=== PATIENT | male | born 1960 | race Caucasian/White ===

== ENCOUNTER → 2016-11-13 | Outpatient (CLI) | payer OTHER ==
[~2016-11-13] MED LIST: /WARF5TA PO; AUGM875T27 PO; FLEC50TA PO; LANO0.252 OR; SALI0.653; SPIR25TA2 PO; SPIRPOW OR; TYLE325T5 PO; XANA0.5T PO; Z-PACK PO
--- NOTE | 2016-11-13 12:48 | REP ---
MAXILLOFACIAL CT WITHOUT CONTRAST: HISTORY: Chronic sinusitis. COMPARISON: 03/30/2012. The sinuses are clear. The osteomeatal units are patent. The middle and inferior nasal turbinates are partially paradoxical. There is minimal deviation of the nasal septum to the left. The cribriform plate, medial carroll of the orbits and optic canals are intact. There is aeration of the anterior clinoid processes. The carotid canals form a segment of the posterolateral carroll of the sphenoid sinus. The right sphenoid sinus septum inserts into the right internal carotid canal wall. IMPRESSION: There is no acute or chronic sinusitis. Signed by Efrain Caceres MD 11/13/2016 12:50 P
== END ==
LOC: M RAD 10:08
PROVIDERS: ATTEND Otolaryngology
DX: J32.4 Chronic pansinusitis (principal)

== ENCOUNTER → 2017-01-08 | Outpatient (CLI) | payer OTHER ==
--- NOTE | 2017-01-08 11:36 | REP ---
MAXILLOFACIAL CT WITHOUT CONTRAST: HISTORY: Chronic pansinusitis. COMPARISON: 11/13/2016. The sinuses are clear. The ostiomeatal units are patent. The middle and inferior nasal turbinates are partially paradoxical. There is minimal deviation of the nasal septum to the left. The cribriform plate, medial carroll of the orbits and optic canals are intact. There is aeration of the anterior clinoid processes. The carotid canals form a segment of the posterolateral carroll of the sphenoid sinus. The right sphenoid sinus septum inserts into the right internal carotid canal wall. IMPRESSION: There is no acute or chronic sinusitis. Signed by Efrain Caceres MD 01/08/2017 11:46 A
== END ==
LOC: M RAD 10:15
PROVIDERS: ATTEND Otolaryngology
DX: J32.9 Chronic sinusitis, unspecified (principal)

== ENCOUNTER → 2017-03-12 | Outpatient (CLI) | payer OTHER ==
[2017-03-12 09:16] LABS: MEAN CORPUSCULAR HEMOGLOBIN 30.7 pg (27.0-33.0); MEAN CORPUSCULAR HGB CONC 34.9 g/dl (32.0-36.5); MEAN CORPUSCULAR VOLUME 87.9 fl (80.0-96.0); PLATELET COUNT, AUTOMATED 242 10^3/uL (150-450); RED CELL DISTRIBUTION WIDTH 13.2 % (11.5-14.5); WHITE BLOOD COUNT 6.4 10^3/uL (4.0-10.0)
[2017-03-12 09:34] LABS: ALBUMIN 4.1 GM/DL (3.2-5.2); ALBUMIN/GLOBULIN RATIO 1.32 (1.00-1.93); ALKALINE PHOSPHATASE 80 U/L (45-117); ALT/SGPT 60 U/L (12-78); ANION GAP 6 MEQ/L (8-16); AST/SGOT 41 U/L (7-37); BILIRUBIN,TOTAL 0.8 MG/DL (0.2-1.0); BLOOD UREA NITROGEN 11 MG/DL (7-18); CALCIUM LEVEL 9.2 MG/DL (8.5-10.1); CARBON DIOXIDE LEVEL 31 MEQ/L (21-32); CHLORIDE LEVEL 105 MEQ/L (98-107); CHOLESTEROL LEVEL 171 MG/DL (<200); CREATININE FOR GFR 1.02 MG/DL (0.70-1.30); GLOMERULAR FILTRATION RATE > 60.0 (>56); GLUCOSE, FASTING 109 MG/DL (70-105); SODIUM LEVEL 142 MEQ/L (136-145); TOTAL PROTEIN 7.2 GM/DL (6.4-8.2); TRIGLYCERIDES LEVEL 191 MG/DL (<150)
== END ==
LOC: M LAB 08:35
PROVIDERS: ATTEND Physician Assistant
DX: Z01.810 Encounter for preprocedural cardiovascular examination (principal); E78.00 Pure hypercholesterolemia, unspecified; I48.0 Paroxysmal atrial fibrillation

== ENCOUNTER 2017-04-30 05:49 | Emergency (ER) | payer OTHER ==
[2017-04-30 06:30] LABS: BASO % 0.4 % (0.0-1.0); EOS # 0.1 10^3/uL (0.0-0.50); EOS % 1.2 % (0.0-3.0); HEMATOCRIT 44.3 % (42.0-52.0); IMMATURE GRANULOCYTE % 0.2 % (0-0); LYMPH # 1.6 10^3/uL (1.5-4.5); LYMPH % 19.7 % (24.0-44.0); MEAN CORPUSCULAR HEMOGLOBIN 30.9 pg (27.0-33.0); MEAN CORPUSCULAR HGB CONC 36.1 g/dl (32.0-36.5); MEAN CORPUSCULAR VOLUME 85.5 fl (80.0-96.0); MONO # 0.6 10^3/uL (0.0-0.8); NEUTROPHILS # 5.7 10^3/uL (1.8-7.7); NEUTROPHILS % 70.5 % (36.0-66.0); PLATELET COUNT, AUTOMATED 240 10^3/uL (150-450); RED BLOOD COUNT 5.18 10^6/uL (4.30-6.10); RED CELL DISTRIBUTION WIDTH 13.1 % (11.5-14.5)
[2017-04-30 07:01] LABS: ANION GAP 8 MEQ/L (8-16); BLOOD UREA NITROGEN 12 MG/DL (7-18); CALCIUM LEVEL 8.8 MG/DL (8.5-10.1); CARBON DIOXIDE LEVEL 28 MEQ/L (21-32); CHLORIDE LEVEL 106 MEQ/L (98-107); CPK CREATINE PHOSPHOKINASE 325 U/L (39-308); CREATININE FOR GFR 1.03 MG/DL (0.70-1.30); GLOMERULAR FILTRATION RATE > 60.0 (>56); GLUCOSE, FASTING 133 MG/DL (70-105); MAGNESIUM LEVEL 2.1 MG/DL (1.8-2.4); POTASSIUM SERUM 3.4 MEQ/L (3.5-5.1); SODIUM LEVEL 142 MEQ/L (136-145); TROPONIN I < 0.02 NG/ML (< 0.10)
[2017-04-30 07:06] LABS: CK-MB VALUE MASS 5.8 NG/ML (0.0-3.6); MB/CK RELATIVE INDEX 1.78 (< OR =4)
[2017-04-30 07:10] LABS: DIGOXIN LEVEL 0.5 NG/ML (0.5-2.0)
== END 2017-04-30 07:48 | disposition home or self-care (01) ==
LOC: M ED 05:49
DX: R00.2 Palpitations (principal); I48.0 Paroxysmal atrial fibrillation; Z79.01 Long term (current) use of anticoagulants; Z95.0 Presence of cardiac pacemaker; E78.00 Pure hypercholesterolemia, unspecified; J45.909 Unspecified asthma, uncomplicated; K44.9 Diaphragmatic hernia without obstruction or gangrene
CPT/HCPCS: 93005

== ENCOUNTER → 2018-05-12 | Outpatient (CLI) | payer OTHER ==
[~2018-05-12] MED LIST changes: +ATOR1TAB19 PO; +MONT10TA2 PO; +XARE20TA PO
--- NOTE | 2018-05-12 11:32 | REP ---
Clinical: Right groin pain status post cardiac catheterization. Technique: Real time valencia scale and color Doppler evaluation using linear high frequency transducer. Findings: Directed ultrasound examination of the right groin at the site of prior catheterization demonstrates subcutaneous edema as well as a 2.6 x 1.1 x 3.1 cm hematoma anterior to normal appearing common femoral artery/superficial femoral artery and common femoral vein. There is no evidence for pseudoaneurysm, aneurysm or arteriovenous fistula. Impression: Subcutaneous edema and small hematoma. Electronically Signed by Bobby Mohan MD 05/12/2018 11:24 A
== END ==
LOC: M RAD 10:46
PROVIDERS: ATTEND Physician Assistant
DX: M79.81 Nontraumatic hematoma of soft tissue (principal)

== ENCOUNTER → 2018-06-20 | Outpatient (REF) | payer OTHER | LOC: M LAB REF 11:22 | PROVIDERS: ATTEND Physician Assistant | DX: R19.7 Diarrhea, unspecified (principal) ==

== ENCOUNTER 2018-06-30 03:34 | Emergency (ER) | payer OTHER ==
[~2018-06-30] VITALS: Ht 188 cm; Wt 100.9 kg
[2018-06-30] MEDS ORDERED: DILT180C74 PO (03:41)
[2018-06-30] MEDS ORDERED: POTA20TA6 PO (03:41)
[2018-06-30 04:28] LABS: BASO % 0.2 % (0.0-1.0); EOS # 0.1 10^3/uL (0.0-0.50); EOS % 0.5 % (0.0-3.0); HEMATOCRIT 46.4 % (42.0-52.0); HEMOGLOBIN 16.3 g/dl (13.5-17.5); LYMPH # 1.1 10^3/uL (1.5-4.5); LYMPH % 8.1 % (24.0-44.0); MEAN CORPUSCULAR HGB CONC 35.1 g/dl (32.0-36.5); MEAN CORPUSCULAR VOLUME 88.2 fl (80.0-96.0); MONO # 0.7 10^3/uL (0.0-0.8); MONO % 5.3 % (0.0-5.0); NEUTROPHILS # 11.2 10^3/uL (1.8-7.7); NEUTROPHILS % 85.4 % (36.0-66.0); PLATELET COUNT, AUTOMATED 245 10^3/uL (150-450); RED BLOOD COUNT 5.26 10^6/uL (4.30-6.10); WHITE BLOOD COUNT 13.1 10^3/uL (4.0-10.0)
[2018-06-30 04:55] LABS: ALBUMIN 4.6 GM/DL (3.2-5.2); ALT/SGPT 34 U/L (12-78); BILIRUBIN,DIRECT 0.1 MG/DL (0.0-0.2); BILIRUBIN,TOTAL 0.5 MG/DL (0.2-1.0); BLOOD UREA NITROGEN 10 MG/DL (7-18); CALCIUM LEVEL 9.1 MG/DL (8.5-10.1); CARBON DIOXIDE LEVEL 27 MEQ/L (21-32); CHLORIDE LEVEL 109 MEQ/L (98-107); CREATININE FOR GFR 0.99 MG/DL (0.70-1.30); GLOMERULAR FILTRATION RATE > 60.0 (>56); GLUCOSE, FASTING 123 MG/DL (70-100); LIPASE 151 U/L (73-393); POTASSIUM SERUM 3.8 MEQ/L (3.5-5.1); SODIUM LEVEL 143 MEQ/L (136-145); TOTAL PROTEIN 7.6 GM/DL (6.4-8.2)
[2018-06-30] MEDS ORDERED: ISOVUE-370 76% 125ML VIAL (Q9967 PER ML) As Ordered ONE (05:37)
[2018-06-30] MEDS ORDERED: metroNIDAZOLE (FLAGYL) 500 MG TAB PO ONE (07:30)
--- NOTE | 2018-06-30 07:54 | REPVR ---
EXAM: CT Abdomen and Pelvis With Contrast EXAM DATE/TIME: 06/30/2018 5:21 AM CLINICAL HISTORY: 57 years old, male; Abdominal pain; diarrhea TECHNIQUE: Axial computed tomography images of the abdomen and pelvis with intravenous contrast. All CT scans at this facility use at least one of these dose optimization techniques: automated exposure control; mA and/or kV adjustment per patient size (includes targeted exams where dose is matched to clinical indication); or iterative reconstruction. Coronal and sagittal reformatted images were created and reviewed. CONTRAST: Contrast Material: 100 ml of iso; Contrast Route: ac COMPARISON: CT ABD PELVIS W/O CONTRAST 08/17/2013 9:49 AM The report from this study was not available for review at the time of this interpretation. FINDINGS: Tubes, catheters and devices: Pacemaker wires were partially imaged in the heart. Lower thorax: There is mild dependent atelectasis in both lower lobes. No cardiomegaly is noted. There is a small water density pericardial effusion. ABDOMEN: Liver: There are multiple water density lesions in the liver, which are compatible with cysts, the largest measuring 3.2 cm and the anterior superior segment 8 of the right hepatic lobe, and some of the cysts on fluctuated in size compared to the prior CT scan on 08/17/2013. The liver is otherwise unremarkable. No hepatomegaly is noted. The contour of the liver is smooth. Gallbladder and bile ducts: There has been a cholecystectomy. There is no fluid collection in the gallbladder fossa. No dilation of the bile ducts is noted. Pancreas: Normal. No ductal dilation. Spleen: The spleen is mildly enlarged and measures 13.1 cm and previously measured 12.4 cm in the prior CT scan on 08/17/2013. No splenic lesion is noted. Adrenals: Normal. No mass. Kidneys and ureters: There is a 7 mm simple cyst in the anterior cortex of the midpole of the left kidney. There are several other smaller low attenuation lesions in both kidneys, which are too small to accurately characterize, but statistically may represent cysts. These lesions are occult in the prior unenhanced CT scan on 08/17/2013. No stones are noted in the kidneys or ureters. There is no hydronephrosis or hydroureter. There are no wedge-shaped areas of low attenuation in the kidneys to suggest pyelonephritis. There is no renal abscess or perinephric fluid collection. Stomach and bowel: There are multiple dilated loops of jejunum and ileum with air-fluid levels measuring up to 4 cm in diameter, with a gradual transition from dilated to nondilated ileum in the left side of the abdomen. No dilation of the colon is noted. There is no evidence for perforated viscus, pneumatosis intestinalis, volvulus, or intussusception. There is liquid feces in the colon, which will lead to diarrhea. Appendix: Normal. There is no evidence for appendicitis. PELVIS: Bladder: The urinary bladder is decompressed, limiting its optimal evaluation. No stones are seen in the bladder. Reproductive: The prostate gland is enlarged and measures 5.4 cm x 4 cm x 4.4 cm and the volume of the prostate gland is increased and measures 50.1 mL. The seminal vesicles are unremarkable. Vasectomy clips are noted. ABDOMEN and PELVIS: Intraperitoneal space: Normal. No free air. No fluid collection. Bones/joints: The imaged bony structures are intact. There is no suspicious osteolytic or osteoblastic lesion. Soft tissues: Unremarkable. No hernia. Vasculature: The abdominal aorta is normal in caliber and patent. The iliac arteries, common femoral arteries, renal arteries, celiac artery, superior mesenteric artery, and inferior mesenteric artery are patent. The renal veins, portal veins, splenic vein, superior mesenteric vein, and inferior mesenteric vein are patent. Lymph nodes: Normal. No enlarged lymph nodes. IMPRESSION: 1. Multiple dilated loops of jejunum and ileum with air-fluid levels measuring up to 4 cm in diameter, with a gradual transition from dilated to nondilated ileum in the left side of the abdomen, which are findings that may represent a small bowel obstruction rather than an ileus. 2. Enlarged prostate gland. 3. Mild splenomegaly. COMMENT: Consistent with the [employer] Incidental Findings Committee Report ([address] [place] [address] Radiol 2010): Unless the patients specific circumstances suggest otherwise, any liver lesion 0.5 cm or less, any cystic kidney lesion less than 1.0 cm, and/or any adrenal lesion 1.0 cm or less not otherwise characterized in this report as possessing suspicious or indeterminate imaging features is/are highly likely to be benign and do not require follow-up imaging or biopsy. Electronically signed by: Femi Haro On 06/30/2018 07:53:41 AM
[2018-06-30] MEDS ORDERED: FLAG500T PO (08:14)
[2018-06-30 08:15] VITALS: BP 116/79
--- NOTE | 2018-06-30 09:52 | ED PDOC ---
Post-Departure Follow-Up ft nuvia gan and dr paul faxed formal report of ct abd/p for fu Anuradha Nguyen MD Jun 30, 2018 09:52
== END 2018-06-30 08:29 | disposition home or self-care (01) ==
LOC: M ED 03:34
DX: A04.72 Enterocolitis due to Clostridium difficile, not specified as recurrent (principal); I48.91 Unspecified atrial fibrillation; Z95.0 Presence of cardiac pacemaker; Z86.718 Personal history of other venous thrombosis and embolism; Z86.711 Personal history of pulmonary embolism; Z88.8 Allergy status to other drugs, medicaments and biological substances; Z88.1 Allergy status to other antibiotic agents; Z88.5 Allergy status to narcotic agent; Z91.048 Other nonmedicinal substance allergy status; Z79.899 Other long term (current) drug therapy; Z79.01 Long term (current) use of anticoagulants
CPT/HCPCS: 74177; 80048; 80076; 83690; 85025; 87507; 93041; 99284; Q9967

== ENCOUNTER 2018-07-12 18:03 | Emergency (ER) | payer OTHER ==
[~2018-07-12] VITALS: Ht 188 cm; Wt 100.9 kg
[~2018-07-12 18:03] MED LIST changes: -/WARF5TA PO; +COUM1TAB17 PO; +DILT1CAP3 PO; +FLAG500T PO; +FLEC50HA PO; -FLEC50TA PO; +POTA20TA6 PO
[2018-07-12] MEDS ORDERED: VANC1CAP6 PO (19:05)
[2018-07-12] MEDS ORDERED: VANCOMYCIN ORAL SOL 250MG/5ML ORAL SYRINGE PO ONE ×2 (19:15)
[2018-07-12 19:29] VITALS: BP 128/80
== END 2018-07-12 19:45 | disposition home or self-care (01) ==
LOC: M ED 18:03
DX: A04.72 Enterocolitis due to Clostridium difficile, not specified as recurrent (principal); I48.91 Unspecified atrial fibrillation; Z86.711 Personal history of pulmonary embolism; Z86.718 Personal history of other venous thrombosis and embolism; Z95.0 Presence of cardiac pacemaker; Z79.899 Other long term (current) drug therapy; Z88.8 Allergy status to other drugs, medicaments and biological substances; Z88.5 Allergy status to narcotic agent; Z91.018 Allergy to other foods

== ENCOUNTER 2018-07-28 14:40 | Emergency (ER) | payer OTHER ==
[~2018-07-28] VITALS: Ht 188 cm; Wt 100.9 kg
[~2018-07-28 14:40] MED LIST changes: +VANC1CAP6 PO
[2018-07-28] MEDS ORDERED: VANC125C3 PO (15:30)
[2018-07-28] MEDS ORDERED: VANCOMYCIN ORAL SOL 250MG/5ML ORAL SYRINGE PO SCH (15:45)
[2018-07-28 16:06] VITALS: BP 126/74
[2018-08-03] MEDS ORDERED: APAP325T4 PO (12:53)
== END 2018-07-28 16:10 | disposition home or self-care (01) ==
LOC: M ED 14:40
DX: A04.72 Enterocolitis due to Clostridium difficile, not specified as recurrent (principal); J45.909 Unspecified asthma, uncomplicated; I48.91 Unspecified atrial fibrillation; Z86.711 Personal history of pulmonary embolism; K21.9 Gastro-esophageal reflux disease without esophagitis; K58.9 Irritable bowel syndrome, unspecified; F41.9 Anxiety disorder, unspecified; F32.9 Major depressive disorder, single episode, unspecified; Z79.899 Other long term (current) drug therapy; Z79.01 Long term (current) use of anticoagulants; Z95.0 Presence of cardiac pacemaker; Z88.1 Allergy status to other antibiotic agents; Z88.5 Allergy status to narcotic agent; Z88.8 Allergy status to other drugs, medicaments and biological substances; Z91.048 Other nonmedicinal substance allergy status

== ENCOUNTER 2018-08-04 13:16 | Day surgery (SDC) | payer OTHER ==
[~2018-08-04] VITALS: Ht 188 cm; Wt 98.9 kg
[~2018-08-04 13:16] MED LIST changes: +APAP325T4 PO; +FECAL MICROBIOTA PREPARATION 250 ML BTL (J3590) XX ONE; +NS 1,000 ML IV ONE; +VANC125C3 PO
[2018-08-04] MEDS ORDERED: PROPOFOL 200 MG/20 ML VIAL As Ordered ONE (17:09)
[2018-08-04] MEDS ORDERED: LIDOCAINE 2% INJ 100 MG/5 ML SDV (FOR ANES.) As Ordered ONE (17:09)
--- NOTE | 2018-08-04 17:12 | ROOR ---
Patient Name: Haider David Procedure Date: 08/04/2018 4:45 PM Date of : 1960 Age: 57 Room: [facility] Gender: Male Note Status: Finalized Procedure: Colonoscopy Indications: Fecal transplant for treatment of recurrent Clostridium difficile diarrhea Providers: Justyn MARTINEZ MD Referring MD: NAGI LAZAR MD Requesting Provider: Medicines: Monitored Anesthesia Care Complications: No immediate complications. Procedure: Pre-Anesthesia Assessment: - The heart rate, respiratory rate, oxygen saturations, blood pressure, adequacy of pulmonary ventilation, and response to care were monitored throughout the procedure. The Colonoscope was introduced through the anus and advanced to 10 cm into the ileum. The colonoscopy was performed without difficulty. The patient tolerated the procedure well. The quality of the bowel preparation was good. Findings: The perianal and digital rectal examinations were normal. Fecal Microbiota Transplant (Bacteriotherapy): Donor stool was prepared as per protocol. Approximately 250 mL of the emulsified donor stool was instilled in the cecum. A detailed colonoscopic exam could not be performed upon scope withdrawal secondary to limited visibility from the instilled stool. The colon (entire examined portion) was moderately redundant. Impression: - Redundant colon. - Fecal Microbiota Transplant (Bacteriotherapy) performed in the cecum. - No specimens collected. Recommendation: - Return to my office in 1 month. Justyn Martinez MD Justyn MARTINEZ MD 08/04/2018 5:11:53 PM Electronically signed by Justyn MARTINEZ MD Number of Addenda: 0 Note Initiated On: 08/04/2018 4:45 PM Estimated Blood Loss: Estimated blood loss: none.
[2018-08-04 17:50] VITALS: BP 128/68
== END 2018-08-04 18:05 | disposition home or self-care (01) ==
LOC: M OPP 13:16
PROVIDERS: ATTEND Internal Medicine Gastroenterology
DX: A04.71 Enterocolitis due to Clostridium difficile, recurrent (principal); Q43.8 Other specified congenital malformations of intestine

== ENCOUNTER → 2018-08-14 | Outpatient (CLI) | payer OTHER ==
[~2018-08-14] MED LIST changes: +E-Z-PAQUE 96% w/w SUSP 176GM BTL As Ordered ONE; -FECAL MICROBIOTA PREPARATION 250 ML BTL (J3590) XX ONE; -NS 1,000 ML IV ONE
--- NOTE | 2018-08-15 15:02 | REP ---
Small bowel follow-through The procedure was performed under the direct supervision of Dr. Martini. The images were reviewed with Dr. Martini. The tests superintendent film shows no organomegaly or pathological masses. The intestinal gas pattern is nonspecific. Liquid barium was administered and the barium column was followed through the small bowel to the level of the terminal ileum. Small bowel transit time is approximately 240 minutes . During fluoroscopy gentle palpation shows all loops are freely movable and pliable. There are no fixed or angulated loops. The small bowel mucosal pattern is normal in course and caliber. There is no transition to suggest a partial small bowel obstruction. Spot filming of the terminal ileum shows it to be unremarkable. Impression: Small bowel follow-through examination within normal limits. 0.9 minutes of fluoro time was utilized for this procedure. Reviewed by LUCA Arana 08/14/2018 04:44 P Electronically Signed by Ranjan Martini MD 08/15/2018 02:51 P
== END ==
LOC: M RAD 08:18
PROVIDERS: ATTEND Internal Medicine Gastroenterology
DX: A04.71 Enterocolitis due to Clostridium difficile, recurrent (principal)

== ENCOUNTER → 2018-08-18 | Outpatient (REF) | payer OTHER ==
[~2018-08-18] MED LIST changes: -E-Z-PAQUE 96% w/w SUSP 176GM BTL As Ordered ONE
[2018-08-18 15:17] LABS: CLOSTRIDIUM DIFFICILE PCR NEGATIVE (NEGATIVE)
== END ==
LOC: M LAB REF 11:49
PROVIDERS: ATTEND Internal Medicine Gastroenterology
DX: A04.71 Enterocolitis due to Clostridium difficile, recurrent (principal)

== ENCOUNTER → 2018-09-05 | Outpatient (REF) | payer OTHER | LOC: M LAB REF 07:20 | PROVIDERS: ATTEND Internal Medicine Gastroenterology | DX: A04.72 Enterocolitis due to Clostridium difficile, not specified as recurrent (principal) ==

== ENCOUNTER → 2018-09-09 | Outpatient (REF) | payer OTHER ==
[2018-09-09 13:02] LABS: CLOSTRIDIUM DIFFICILE PCR NEGATIVE (NEGATIVE)
== END ==
LOC: M LAB REF 09:13
PROVIDERS: ATTEND Internal Medicine Gastroenterology
DX: R19.7 Diarrhea, unspecified (principal)

== ENCOUNTER → 2018-10-27 | Outpatient (CLI) | payer OTHER ==
[2018-10-27 11:09] LABS: HEMOGLOBIN 15.5 g/dl (13.5-17.5); MEAN CORPUSCULAR HEMOGLOBIN 31.4 pg (27.0-33.0); MEAN CORPUSCULAR HGB CONC 35.2 g/dl (32.0-36.5); MEAN CORPUSCULAR VOLUME 89.1 fl (80.0-96.0); PLATELET COUNT, AUTOMATED 204 10^3/uL (150-450); RED BLOOD COUNT 4.94 10^6/uL (4.30-6.10)
[2018-10-27 11:49] LABS: ALBUMIN 4.3 GM/DL (3.2-5.2); ALT/SGPT 33 U/L (12-78); BILIRUBIN,TOTAL 0.5 MG/DL (0.2-1.0); BLOOD UREA NITROGEN 7 MG/DL (7-18); CALCIUM LEVEL 9.6 MG/DL (8.5-10.1); CARBON DIOXIDE LEVEL 31 MEQ/L (21-32); CHLORIDE LEVEL 106 MEQ/L (98-107); CHOLESTEROL LEVEL 163 MG/DL (<200); CHOLESTEROL RISK RATIO 3.975 (<5); GLOMERULAR FILTRATION RATE > 60.0 (>56); GLUCOSE, FASTING 96 MG/DL (70-100); HDL CHOLESTEROL 41 MG/DL (>40); LDL CHOLESTEROL 95 MG/DL (<100); MAGNESIUM LEVEL 2.2 MG/DL (1.8-2.4); NON-HDL-C 122 MG/DL; POTASSIUM SERUM 4.1 MEQ/L (3.5-5.1); SODIUM LEVEL 142 MEQ/L (136-145); TRIGLYCERIDES LEVEL 135 MG/DL (<150)
== END ==
LOC: M LAB 09:50
PROVIDERS: ATTEND Physician Assistant
DX: I48.0 Paroxysmal atrial fibrillation (principal); E78.00 Pure hypercholesterolemia, unspecified

== ENCOUNTER 2018-11-24 18:02 | Emergency (ER) | payer OTHER ==
[~2018-11-24] VITALS: Ht 188 cm; Wt 94.9 kg
[2018-11-24] MEDS ORDERED: LOPE1CAP5 (19:13)
[2018-11-24] MEDS ORDERED: MIRA3350 (19:13)
[2018-11-24] MEDS ORDERED: ROSU10TA6 (19:13)
[2018-11-24] MEDS ORDERED: PANTOPRAZOLE 40MG INJ (PROTONIX) (C9113) IV ONE (19:15)
[2018-11-24] MEDS ORDERED: NS 1,000 ML IV ONE (19:15)
[2018-11-24 19:50] LABS: BASO % 0.3 % (0.0-1.0); EOS # 0.1 10^3/uL (0.0-0.50); EOS % 1.7 % (0.0-3.0); HEMATOCRIT 41.8 % (42.0-52.0); HEMOGLOBIN 14.8 g/dl (13.5-17.5); LYMPH # 1.3 10^3/uL (1.5-4.5); MEAN CORPUSCULAR HEMOGLOBIN 31.5 pg (27.0-33.0); MEAN CORPUSCULAR HGB CONC 35.4 g/dl (32.0-36.5); MEAN CORPUSCULAR VOLUME 88.9 fl (80.0-96.0); MONO # 0.5 10^3/uL (0.0-0.8); MONO % 8.7 % (0.0-5.0); NEUTROPHILS # 3.8 10^3/uL (1.8-7.7); PLATELET COUNT, AUTOMATED 197 10^3/uL (150-450); WHITE BLOOD COUNT 5.8 10^3/uL (4.0-10.0)
[2018-11-24 20:00] VITALS: BP 134/75
[2018-11-24 20:05] LABS: ALBUMIN 4.3 GM/DL (3.2-5.2); ALT/SGPT 28 U/L (12-78); BILIRUBIN,DIRECT 0.1 MG/DL (0.0-0.2); BILIRUBIN,TOTAL 0.5 MG/DL (0.2-1.0); BLOOD UREA NITROGEN 11 MG/DL (7-18); CALCIUM LEVEL 8.9 MG/DL (8.5-10.1); CARBON DIOXIDE LEVEL 28 MEQ/L (21-32); CHLORIDE LEVEL 108 MEQ/L (98-107); CREATININE FOR GFR 0.93 MG/DL (0.70-1.30); GLOMERULAR FILTRATION RATE > 60.0 (>56); GLUCOSE, FASTING 99 MG/DL (70-100); LIPASE 91 U/L (73-393); POTASSIUM SERUM 3.6 MEQ/L (3.5-5.1); SODIUM LEVEL 143 MEQ/L (136-145); TOTAL PROTEIN 6.9 GM/DL (6.4-8.2)
== END 2018-11-24 21:09 | disposition home or self-care (01) ==
LOC: M ED 18:02
DX: R19.7 Diarrhea, unspecified (principal); I48.91 Unspecified atrial fibrillation; Z79.899 Other long term (current) drug therapy; Z79.01 Long term (current) use of anticoagulants
CPT/HCPCS: 80048; 80076; 83690; 85025; 87507; 96374; 99284; C9113

== ENCOUNTER 2018-11-28 04:27 | Emergency (ER) | payer OTHER ==
[~2018-11-28] VITALS: Ht 188 cm; Wt 95.5 kg
[~2018-11-28 04:27] MED LIST changes: +LOPE1CAP5; +MIRA3350; +ROSU10TA6
[2018-11-28] MEDS ORDERED: NS 1,000 ML IV ONE (05:30)
[2018-11-28 05:51] LABS: BASO % 0.1 % (0.0-1.0); EOS % 0.1 % (0.0-3.0); HEMATOCRIT 44.7 % (42.0-52.0); HEMOGLOBIN 15.7 g/dl (13.5-17.5); LYMPH # 0.8 10^3/uL (1.5-4.5); MEAN CORPUSCULAR HEMOGLOBIN 31.2 pg (27.0-33.0); MEAN CORPUSCULAR HGB CONC 35.1 g/dl (32.0-36.5); MEAN CORPUSCULAR VOLUME 88.9 fl (80.0-96.0); MONO # 0.8 10^3/uL (0.0-0.8); MONO % 5.4 % (0.0-5.0); NEUTROPHILS # 13.9 10^3/uL (1.8-7.7); PLATELET COUNT, AUTOMATED 197 10^3/uL (150-450); RED BLOOD COUNT 5.03 10^6/uL (4.30-6.10); WHITE BLOOD COUNT 15.6 10^3/uL (4.0-10.0)
[2018-11-28] MEDS ORDERED: MAALOX 30 ML SUSP *UDC PO ONE (06:00)
[2018-11-28] MEDS ORDERED: ONDANSETRON 4MG/2ML VIAL (J2405) IV ONE (06:00)
[2018-11-28 06:29] LABS: ALBUMIN 4.6 GM/DL (3.2-5.2); BILIRUBIN,DIRECT 0.1 MG/DL (0.0-0.2); BILIRUBIN,TOTAL 0.5 MG/DL (0.2-1.0); TOTAL PROTEIN 7.4 GM/DL (6.4-8.2)
[2018-11-28] MEDS ORDERED: HYDROMORPHONE HCL 0.5 MG/ 0.5 ML SYRINGE (J1170 PER 1) IV PRN (07:15)
[2018-11-28] MEDS ORDERED: ISOVUE-370 76% 100ML VIAL (Q9967) As Ordered ONE (07:29)
--- NOTE | 2018-11-28 08:18 | REPVR ---
EXAM: CT Abdomen and Pelvis With Contrast EXAM DATE/TIME: 11/28/2018 7:39 AM CLINICAL HISTORY: 58 years old, male; Abdominal pain; Generalized; Additional info: Abd pain, leukocytosis TECHNIQUE: Imaging protocol: Axial computed tomography images of the abdomen and pelvis with intravenous contrast. Coronal and sagittal reformatted images were created and reviewed. Radiation optimization: All CT scans at this facility use at least one of these dose optimization techniques: automated exposure control; mA and/or kV adjustment per patient size (includes targeted exams where dose is matched to clinical indication); or iterative reconstruction. Contrast material: ISOVUE 370;Contrast volume: 100 ml;Contrast route: IV; COMPARISON: CT ABD/PEL W/IV CONTRAST ONLY 06/30/2018 5:38 AM FINDINGS: Lungs: There is bilateral basilar atelectatic lung changes. Liver: Numerous hepatic cysts seen the largest is in the right hepatic dome measuring 3.8 x 3.3 cm. Gallbladder and bile ducts: The patient status post cholecystectomy. The CBD is dilated measuring up to 1.1 cm, probably minimally more prominent than the prior exam with slightly more prominent central intrahepatic ductal dilatation. Pancreas: Normal. No ductal dilation. Spleen: The spleen is upper normal in size measuring 13.8 cm in maximum dimension. Adrenals: Normal. No mass. Kidneys and ureters: Normal. No hydronephrosis. Stomach and bowel: There is diffuse fluid distended small bowel measuring up to 3.9 cm without evidence of collapse small bowel loops with distention seen through the distal ileum. Colon is also distended with fluid. Appendix: No evidence of appendicitis. Intraperitoneal space: Normal. No free air. No significant fluid collection. Vasculature: Normal. No abdominal aortic aneurysm. Lymph nodes: There is shotty small bowel mesenteric lymph nodes. Bladder: Unremarkable as visualized. Reproductive: The prostate gland is enlarged and heterogeneous measuring 5.5 x 4.9 cm. Bones/joints: No acute fracture. No dislocation. Soft tissues: Unremarkable. IMPRESSION: 1. Diffusely fluid dilated small bowel loops up to 3.9 cm with distention seen through the distal ileum and no evidence of collapse small bowel loop or obvious transition zone coupled with fluid distended colon suggestive of ileus. 2. Status post cholecystectomy. 3. CBD dilatation up to 1.1 cm with mild central intrahepatic ductal dilatation apparently slightly more prominent than the prior exam. This could be secondary to the overall diffuse ileus with increased pressure in the bowel loops however clinical correlation is needed with LFTs and bilirubin level. 4. Numerous simple appearing hepatic cysts largest measuring 3.8 x 3.3 cm. Electronically signed by: Wesley Parisi On 11/28/2018 08:17:58 AM
[2018-11-28] MEDS ORDERED: ZOFR4TAB16 PO (08:48)
[2018-11-28 08:56] VITALS: BP 130/85
--- NOTE | 2018-11-28 19:24 | ECGEPIP ---
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
--- NOTE | 2018-11-29 20:24 | ED PDOC ---
Post-Departure Follow-Up [facility] and lasha gan faxed formal report of ct abd/p for fu Anuradha Nguyen MD Nov 29, 2018 20:24
== END 2018-11-28 09:00 | disposition home or self-care (01) ==
LOC: M ED 04:27
DX: R10.9 Unspecified abdominal pain (principal); R11.10 Vomiting, unspecified; R19.7 Diarrhea, unspecified; D72.829 Elevated white blood cell count, unspecified; T46.6X1A Poisoning by antihyperlipidemic and antiarteriosclerotic drugs, accidental (unintentional), initial encounter; Y92.9 Unspecified place or not applicable; Y93.9 Activity, unspecified; Z86.73 Personal history of transient ischemic attack (TIA), and cerebral infarction without residual deficits; Z79.02 Long term (current) use of antithrombotics/antiplatelets; Z79.899 Other long term (current) drug therapy; Z88.1 Allergy status to other antibiotic agents; Z88.5 Allergy status to narcotic agent; Z88.8 Allergy status to other drugs, medicaments and biological substances; Z91.018 Allergy to other foods
CPT/HCPCS: 74177; 80047; 80076; 83690; 85025; 93005; 93041; 96374; 96375; 99284; J1170; J2405; Q9967

== ENCOUNTER → 2019-02-10 | Outpatient (CLI) | payer OTHER ==
[~2019-02-10] MED LIST changes: +ZOFR4TAB16 PO
[2019-02-10 17:31] LABS: ALBUMIN 4.3 GM/DL (3.2-5.2); ALT/SGPT 27 U/L (12-78); BILIRUBIN,TOTAL 0.8 MG/DL (0.2-1.0); BLOOD UREA NITROGEN 7 MG/DL (7-18); CALCIUM LEVEL 9.1 MG/DL (8.5-10.1); CARBON DIOXIDE LEVEL 30 MEQ/L (21-32); CHLORIDE LEVEL 103 MEQ/L (98-107); CREATININE FOR GFR 1.03 MG/DL (0.70-1.30); GLOMERULAR FILTRATION RATE > 60.0 (>56); GLUCOSE, FASTING 122 MG/DL (70-100); POTASSIUM SERUM 3.7 MEQ/L (3.5-5.1); SODIUM LEVEL 140 MEQ/L (136-145); TOTAL PROTEIN 7.1 GM/DL (6.4-8.2)
== END ==
LOC: M LAB 16:38
PROVIDERS: ATTEND Internal Medicine Gastroenterology
DX: K63.89 Other specified diseases of intestine (principal)

== ENCOUNTER → 2019-02-10 | Outpatient (CLI) | payer OTHER ==
[~2019-02-10] MED LIST changes: +GASTROGRAFIN SOLUTION 30ML (Q9963) As Ordered ONE; +ISOVUE-370 76% 100ML VIAL (Q9967) As Ordered ONE
--- NOTE | 2019-02-11 08:34 | REP ---
Clinical: GI disorder. Technique: Axial contrast enhanced images from the lung bases to the pubic symphysis with precontrast and delayed images of the abdomen using oral (per protocol) and 100 ml and to be 370 intravenous contrast material. Coronal and sagittal re-formations obtained. Comparison: 11/28/2018. Findings: Innumerable stable hepatic cysts are again identified measuring approximately up to 3.4 cm in the anterior segment right lobe. Spleen, pancreas, bilateral adrenal glands and kidneys are normal. Evidence for prior cholecystectomy with stable compensatory biliary ductal dilatation. Evaluation of the enteric system is without obstruction or acute inflammatory process. Normal terminal ileum, cecum and appendix identified in the right lower quadrant. Few scattered sigmoid diverticula noted without acute diverticulitis. Pelvis demonstrates normal bladder and age appropriate prostate/seminal vesicles. No ascites. No free air. No adenopathy. Abdominal aorta without aneurysm or dissection. Musculoskeletal structures demonstrate age-related changes without focal osseous abnormality. Lung bases are clear and suggest mild COPD. Impression: 1. Benign hepatic cysts unchanged from prior examination. 2. Normal appearance to the small and large bowel and the previously noted small bowel distension has resolved. 3. No acute abdominopelvic pathology appreciated. Electronically Signed by Bobby Mohan MD 02/11/2019 08:25 A
== END ==
LOC: M RAD 15:57
PROVIDERS: ATTEND Internal Medicine Gastroenterology
DX: K63.89 Other specified diseases of intestine (principal); R63.4 Abnormal weight loss; R93.2 Abnormal findings on diagnostic imaging of liver and biliary tract
CPT/HCPCS: 36415; 74178; 80053; Q9963; Q9967